=== PATIENT | female | born 1960 | race Caucasian/White ===

== ENCOUNTER 2020-11-08 16:10 | Outpatient (CLI) | payer OTHER | END 2020-11-08 16:11 | disposition home or self-care (01) | LOC: COV 16:10 | PROVIDERS: ATTEND Family Medicine | DX: U07.1 COVID-19 (principal) ==

== ENCOUNTER 2022-08-08 11:03 | Outpatient (CLI) | payer OTHER ==
--- NOTE | 2022-08-08 15:05 | XRAY Report ---
PROCEDURE: Foot 3 View RT INDICATIONS: RIGHT FOOT PAIN TECHNIQUE: 3 views of the foot were acquired. COMPARISON: None FINDINGS: Bones: No fractures or dislocations. No suspicious bony lesions. Small calcaneal spur noted Soft tissues: No tibiotalar joint effusion. Achilles tendon appears normal. IMPRESSION: Small calcaneal spur. Otherwise unremarkable Reviewed by: Curt Jerome MD on 08/08/2022 2:04 PM [place] Approved by: Curt Jerome MD on 08/08/2022 2:04 PM [place] Station ID: [id number]
== END 2022-08-08 11:04 | disposition home or self-care (01) ==
LOC: DI 11:03
PROVIDERS: ATTEND Naturopath
DX: M77.31 Calcaneal spur, right foot (principal)

== ENCOUNTER 2022-12-07 07:28 | Outpatient (CLI) | payer OTHER ==
--- NOTE | 2022-12-08 10:29 | Ultrasound Report ---
PROCEDURE: Abdomen Complete INDICATIONS: ABD PAIN TECHNIQUE: Real-time scanning was performed of the abdominal and retroperitoneal organs, with image documentatio n. COMPARISON: None. FINDINGS: Liver: Increased liver echogenicity, commonly mild hepatic steatosis. 3.8 cm right hepatic cystic le tamika with thin internal septations but no nodularity. Gallbladder: Gallbladder wall thickening, measuring up to 5.6 cm. The gallbladder contains stones and sludge, and is nondistended. Negative sonographic Saravia sign. Biliary ducts: Intrahepatic bile ducts are non-dilated. Extrahepatic bile duct caliber measures 4 m m. Normal is 6-7 mm or less in diameter, or 10 mm or less post-cholecystectomy. Pancreas: Visualized portions of the pancreas are sonographically normal. Spleen: Spleen is normal in size and homogeneous in echotexture. Kidneys: Kidneys are normal in size and echotexture. Right kidney measures 10.4 cm long; left kidne y measures 10.2 cm long. No hydronephrosis or nephrolithiasis. No solid masses. No complex renal cy stic lesions which require follow-up. Aorta: Visualized aorta is normal in caliber at less than 3 cm. Iliacs: Proximal common iliac arteries are normal in caliber at less than 2.5 cm. IVC: Intrahepatic inferior vena cava is patent. Miscellaneous: No free abdominal fluid. IMPRESSION: Cholelithiasis and gallbladder sludge, with wall thickening. Negative sonographic Saravia sign. Findin gs are equivocal for acute cholecystitis, but probable cause of right upper quadrant pain. Surgical r eferral should be considered. Mild hepatic steatosis. Reviewed by: Reji Rowe on 12/08/2022 10:27 AM PDT Approved by: Reji Rowe on 12/08/2022 10:27 AM PDT Station ID: [id number]
== END 2022-12-07 07:29 | disposition home or self-care (01) ==
LOC: DI 07:28
PROVIDERS: ATTEND Naturopath
DX: K80.20 Calculus of gallbladder without cholecystitis without obstruction (principal); K76.0 Fatty (change of) liver, not elsewhere classified

== ENCOUNTER 2024-02-19 10:07 | Outpatient (CLI) | payer OTHER ==
[2024-02-19 10:20] LABS: BASOPHILS # (AUTO) 0.1 10^3/uL (0.0-0.1); BASOPHILS % (AUTO) 1.1 %; EOSINOPHILS # (AUTO) 0.1 10^3/uL (0.0-0.7); EOSINOPHILS % (AUTO) 2.5 %; HCT - HEMATOCRIT 44.8 % (37.0-47.0); HGB - HEMOGLOBIN 14.2 g/dL (12.0-16.0); LYMPHOCYTES # (AUTO) 1.2 10^3/uL (1.5-3.5); LYMPHOCYTES % (AUTO) 21.9 %; MEAN CORPUSCULAR HEMOGLOBIN 29.6 pg (27.0-31.0); MEAN CORPUSCULAR HGB CONC 31.7 g/dL (32.0-36.0); MEAN CORPUSCULAR VOLUME 93.3 fL (81.0-99.0); MEAN PLATELET VOLUME 9.3 fL (7.9-10.8); MONOCYTES # (AUTO) 0.5 10^3/uL (0.0-1.0); MONOCYTES % (AUTO) 9.7 %; NEUTROPHILS # (AUTO) 3.6 10^3/uL (1.5-6.6); NEUTROPHILS % (AUTO) 64.6 %; PLT - PLATELET COUNT 296 10^3/uL (130-450); RED CELL DISTRIBUTION WIDTH 13.2 % (12.0-15.0); WHITE BLOOD COUNT 5.6 x10^3/uL (4.8-10.8)
[2024-02-19 10:44] LABS: ALBUMIN 4.4 g/dL (3.2-5.5); ALBUMIN/GLOBULIN RATIO 1.7 (1.0-2.2); ALKALINE PHOSPHATASE 79 IU/L (42-121); ALT ALANINE AMINOTRANSFERASE 32 IU/L (10-60); AST ASPARTATE AMINOTRANSFERASE 51 IU/L (10-42); BILIRUBIN,TOTAL 0.4 mg/dL (0.2-1.0); BUN - BLOOD UREA NITROGEN 14 mg/dL (6-20); CALCIUM 9.9 mg/dL (8.5-10.3); CARBON DIOXIDE - CO2 34 mmol/L (21-32); CHLORIDE 104 mmol/L (101-111); CHOL/HDL RATIO 2.4 (<4.4); CHOLESTEROL 205 mg/dL; CREATININE 0.6 mg/dL (0.6-1.3); GFR - MDRD 101 (>89); GLUCOSE 90 mg/dL (74-104); HDL CHOLESTEROL 84 mg/dL; LDL CHOLESTEROL,CALCULATED 109 mg/dL; LDL/HDL RATIO 1.3 (<4.4); POTASSIUM 4.7 mmol/L (3.5-4.5); SODIUM 141 mmol/L (135-145); TRIGLYCERIDES 58 mg/dL; VLDL CHOLESTEROL 12 mg/dL
[2024-02-19 10:55] LABS: ESTIMATED AVERAGE GLUCOSE 108 mg/dL (70-100); HEMOGLOBIN A1c% 5.4 % (4.27-6.07)
[2024-02-19 10:58] LABS: THYROID STIMULATING HORMONE 5.07 uIU/mL (0.34-5.60)
== END 2024-02-19 10:08 | disposition home or self-care (01) ==
LOC: LAB 10:07
DX: Z00.00 Encounter for general adult medical examination without abnormal findings (principal); E03.9 Hypothyroidism, unspecified
CPT/HCPCS: 36415; 80053; 80061; 83036; 83721; 84443; 85025